=== PATIENT | male | born 1975 | race African-American/Black ===

== ENCOUNTER 2020-11-25 13:17 | Emergency (ER) | payer SELFPAY ==
[~2020-11-25] VITALS: Ht 182.9 cm; Wt 75.0 kg
[2020-11-25 13:28] VITALS: BP 115/74; TEMP 97.9
[2020-11-25 14:45] VITALS: PULSE 75
== END 2020-11-25 14:45 | disposition home or self-care (01) ==
LOC: COL.ER 13:17
DX: Z71.1 Person with feared health complaint in whom no diagnosis is made (principal); Z20.822 Contact with and (suspected) exposure to COVID-19; F17.210 Nicotine dependence, cigarettes, uncomplicated

== ENCOUNTER 2020-12-19 09:20 | Emergency (ER) | payer SELFPAY ==
[~2020-12-19] VITALS: Ht 182.9 cm; Wt 77.3 kg
[2020-12-19 09:38] VITALS: BP 111/79; TEMP 98.1
[2020-12-19] MEDS ORDERED: LAC-HYDRIN121 TP (09:57)
[2020-12-19] MEDS ORDERED: TOPICORT0.5CR15 TP (09:57)
[2020-12-19 10:03] VITALS: PULSE 95
== END 2020-12-19 10:03 | disposition home or self-care (01) ==
LOC: COL.ER 09:20
DX: L25.9 Unspecified contact dermatitis, unspecified cause (principal)